=== PATIENT | female | born 1995 | race Hispanic/Latino ===

== ENCOUNTER → 2020-06-21 | Day surgery (SDC) | payer OTHER ==
[2020-06-17 09:55] LABS: BASOPHILS % 0.4 % (0.0-1.0); EOSINOPHILS # (AUTO) 0.1 (0.0-0.4); EOSINOPHILS % 0.6 % (0.0-6.0); HEMATOCRIT 42.6 % (34.2-44.1); HEMOGLOBIN 14.5 g/dL (12.0-16.0); LYMPHOCYTES # (AUTO) 1.5 (1.0-3.2); LYMPHOCYTES % 17.9 % (18.0-39.1); MEAN CORPUSCULAR HEMOGLOBIN 29.5 pg (28-32); MEAN CORPUSCULAR VOLUME 86.6 fL (81-99); MONOCYTES # (AUTO) 0.3 (0.2-0.8); MONOCYTES % 3.8 % (4.4-11.3); NEUTROPHILS # (AUTO) 6.2 (2.1-6.9); NEUTROPHILS % 77.1 % (38.7-80.0); PLATELET COUNT 339 x10e3/uL (140-360); RED BLOOD COUNT 4.92 x10e6/uL (3.6-5.1); RED CELL DISTRIBUTION WIDTH 11.8 % (11.7-14.4)
[2020-06-17 10:19] LABS: ALANINE AMINOTRANSFERASE 15 IU/L (0-55); ALBUMIN 4.3 g/dL (3.5-5.0); ALBUMIN/GLOBULIN RATIO 1.3 (0.8-2.0); ALKALINE PHOSPHATASE 60 IU/L (40-150); ANION GAP 14.3 mmol/L (8-16); BLOOD UREA NITROGEN 15 mg/dL (7-26); BUN/CREATININE RATIO 17 (6-25); CALCIUM 9.4 mg/dL (8.4-10.2); CARBON DIOXIDE 22 mmol/L (22-29); CHLORIDE 110 mmol/L (98-107); CREATININE, SERUM 0.87 mg/dL (0.57-1.11); EST GLOMERULAR FILTRATION RATE > 60 ML/MIN (60-); GLUCOSE 96 mg/dL (74-118); POTASSIUM 4.3 mmol/L (3.5-5.1); SODIUM 142 mmol/L (136-145)
[~2020-06-21] MED LIST: BUPIVACAINE 0.25%/EPI 30ML SDV INJ ONE; CEFAZOLIN SOD 1 GM VIAL ONE; DEXAMETHASONE SOD PHOS INJ 4 MG/ML VIAL ONE; FENTANYL CITRATE/PF 100MCG/2 ML INJ ONE; GLYCOPYRROLATE INJ 0.2 MG/ML VIAL ONE; LIDOCAINE HCL 2% JELLY 5 ML TUBE ONE; LIDOCAINE HCL 2% LOCAL INJ 5 ML SDV VIAL INJ ONE; NEOSTIGMINE 1 MG/ML 10ML VIAL ONE; PROPOFOL IV EMULSION 10 MG/ML 20 ML VIAL ONE; ROCURONIUM BROMIDE 10 MG/ML 5ML VIAL IV ONE; SEVOFLURANE INHAL SOLN 250 ML PEN BTL ONE; SUCCINYLCHOLINE CHLORIDE 20 MG/ML 10ML VIAL ONE
[2020-06-21 12:55] VITALS: BP 119/79
--- NOTE | 2020-06-21 15:14 | Operative Report ---
DATE OF PROCEDURE: 06/21/2020 SURGEON: Jason Arriola MD PREOPERATIVE DIAGNOSIS: Large mass of the occipital area. POSTOPERATIVE DIAGNOSIS: Large mass of the occipital area. OPERATION PERFORMED: Resection of large mass of the occipital area. ANESTHESIA: General. COMPLICATIONS: None. ESTIMATED BLOOD LOSS: Minimal. DESCRIPTION OF PROCEDURE: With the patient lying in bed in the prone position under good general endotracheal anesthesia, the occipital area and the neck and back were prepped with Hibiclens solution and draped in the usual manner. The area overlying the mass extended from one side of the occipital area all the way to the other side, it was then infiltrated with 0.25% Marcaine with epinephrine. An incision was made, it was carried down through the subcutaneous tissue and immediately a multilobulated interdigitating poorly encapsulated lipomatous mass was encountered. The largest portion of the mass actually extended to the right occipital area, but it also extended way into the left occipital area. The mass was then slowly and carefully from the surrounding structures, it was stuck all the way down into the posterior neck and occipital muscles, and it was slowly and carefully from all of these structures and totally and completely removed, and sent for pathological examination. The whole area was then thoroughly irrigated. Perfect hemostasis was ascertained. The deeper planes were then infiltrated with 0.25% Marcaine solution. The subcutaneous tissue was then reapproximated with interrupted sutures of 2-0 Vicryl and the skin was closed with interrupted vertical mattress sutures of 2-0 Prolene. A dressing could not be applied because of the location, Neosporin was placed. The sponge, lap, and needle counts were correct. The patient tolerated the procedure well and returned to the recovery room in stable condition. Jason Arriola MD JLR/MODL /[id number]
== END | disposition home or self-care (01) ==
LOC: OR 07:10
PROVIDERS: ATTEND Surgery
DX: D17.9 Benign lipomatous neoplasm, unspecified (principal); J30.2 Other seasonal allergic rhinitis; T78.49XA Other allergy, initial encounter; F17.200 Nicotine dependence, unspecified, uncomplicated; Z01.812 Encounter for preprocedural laboratory examination; Z11.59 Encounter for screening for other viral diseases
CPT/HCPCS: 21014; 36415; 80053; 81025; 85025; 88304; J0330; J0690; J1100; J2001 ×2; J2704; J2710; J3010; U0002